=== PATIENT | male | born 1985 | race Caucasian/White ===

== ENCOUNTER → 2018-06-17 | Outpatient (REF) ==
[~2018-06-17] MED LIST: ALBU8.5H2 IH; BENZ100C18 PO; IBP800T PO; ONDA8TAB13 PO; ONDA8TAB9 PO; ONDAN4ODT PO; OSLT75CRX PO; PRD20T PO
--- NOTE | 2018-06-17 11:41 | Diagnostic Imaging Report ---
INDICATION: Left knee pain. TIME OF EXAM: 11:31 AM 3 views left knee were obtained. FINDINGS: Alignment is normal. Joint spaces are well maintained. Articular surfaces are smooth. No fracture, dislocation or effusion is seen. IMPRESSION: No acute bony abnormality is detected. Dictated by: Dictated on workstation # [id number]
== END | disposition home or self-care (01) ==
LOC: OCC 10:56
PROVIDERS: ATTEND Family Medicine
CPT/HCPCS: 73562

== ENCOUNTER → 2018-07-08 | Outpatient (REF) | payer OTHER ==
--- NOTE | 2018-07-08 19:06 | Diagnostic Imaging Report ---
PROCEDURE: MRI left joint lower extremity without contrast. TECHNIQUE: Multiplanar, multisequence non contrast-enhanced MRI of the left lower extremity was accomplished. INDICATION: Left knee pain. FINDINGS: There is some increased signal intensity about the anterior cruciate ligament. There appear to be a few fibers intact, although findings are suspect for a partial tear. The posterior cruciate ligament is intact. Both the superficial and deep components of the medial collateral ligament are intact. The biceps femoris, fibular collateral, and iliotibial band are intact. The popliteus is intact. There appears to be a tear of the posterior horn of the medial meniscus. The anterior horn of the medial meniscus is intact. There also appears to be a nondisplaced tear of the posterior horn of the lateral meniscus. Anterior horn is intact. The quadriceps tendon and patellar tendon are intact. There is a small knee joint effusion. The articular cartilage of the patella is well maintained. There is loss of articular cartilage in the lateral knee joint compartment with some underlying marrow edema in both the lateral femoral condyle and lateral tibial plateau. The articular cartilage in the medial knee joint compartment is well maintained. IMPRESSION: Findings suspect for tears of the posterior horn of both the medial and lateral menisci. Recommend clinical correlation. Loss of articular cartilage in the lateral knee joint compartment with underlying marrow edema in the lateral femoral condyle and lateral tibial plateau. Findings suspect for a partial tear of the anterior cruciate ligament. Complete tear cannot be entirely excluded. Recommend clinical correlation. Small knee joint effusion. Dictated by: Dictated on workstation # [id number]
== END | disposition home or self-care (01) ==
LOC: OCC 15:59
PROVIDERS: ATTEND Family Medicine
CPT/HCPCS: 73721

== ENCOUNTER 2020-08-31 13:19 | Day surgery (SDC) | payer SELFPAY ==
[~2020-08-31] VITALS: Ht 180.3 cm; Wt 109.0 kg
[2020-08-31] VITALS (10 sets, daily range): BP systolic 116–167; BP diastolic 84–97
--- NOTE | 2020-08-31 13:44 | ED Abdominal Pain ---
General Chief Complaint: Abdominal/GI Problems Stated Complaint: L SIDE PAIN, ABD PAIN, NAUSEA Source of Information: Patient Exam Limitations: No Limitations History of Present Illness Date Seen by Provider: Aug 31, 2020 Time Seen by Provider: 13:30 Initial Comments This is a well-appearing 34-year-old male who presents to the ER with complaints of lower abdominal pain and left flank pain since 0400 this morning. States he has a sharp, constant pain, and rates 10/10. Also reports nausea without emesis and some constipation. Denies any flatulence. denies fevers, chills, cough, shortness of breath, difficulty urinating, dysuria, or hematuria. States he has been unable to eat anything today, but did drink Dr. Pepper around 1300 this afternoon. Severity/Quality: Moderate Location: RLQ, LLQ, Flank (left ) Activities at Onset: None Allergies and Home Medications Allergies Coded Allergies: No Known Drug Allergies (Unverified , 10/15/12) Home Medications Albuterol 8.5 Gm Hfa.aer.ad, 2 PUFF IH Q6H 2 PUFFS Prescribed by: BETH GIBSON on 09/30/131921 Benzonatate 100 Mg Capsule, 100 MG PO Q4H PRN for COUGH Prescribed by: BETH GIBSON on 09/30/131921 Ibuprofen 800 Mg Tablet, 1 EACH PO TID PRN Prescribed by: SCAR AGGARWAL on 10/15/12701 Ondansetron 8 Mg Tab.rapdis, 8 MG PO Q6H PRN for NAUSEA/VOMITING Prescribed by: BETH GIBSON on 09/30/131923 Ondansetron Hcl 8 Mg/Tab Tab.rapdis, 4 MG PO Q6 PRN, (Reported) Ondansetron Hcl 4 Mg Tab, 4 MG PO Q4H Prescribed by: SCAR AGGARWAL on 10/15/12701 Oseltamivir Phosphate 75 Mg Cap, 75 MG PO BID Prescribed by: BETH GIBSON on 09/30/131921 Prednisone 20 Mg Tab, 40 MG PO DAILY Prescribed by: BETH GIBSON on 09/30/131921 Patient Home Medication List Home Medication List Reviewed: Yes Review of Systems Review of Systems Constitutional: no symptoms reported EENTM: No Symptoms Reported Respiratory: No Symptoms Reported Cardiovascular: No Symptoms Reported Gastrointestinal: See HPI Genitourinary: No Symptoms Reported Musculoskeletal: no symptoms reported Skin: no symptoms reported Psychiatric/Neurological: No Symptoms Reported Endocrine: No Symptoms Reported Hematologic/Lymphatic: No Symptoms Reported Past Xcdgoho-Uatzcj-Xvwxeb Hx Patient Social History Recent Foreign Travel: No Contact w/Someone Who Travel: No Past Medical History Reproductive Disorders: No Sexually Transmitted Disease: No Family Medical History No Pertinent Family Hx Physical Exam Vital Signs Vital Signs - First Documented 08/31/20 13:25 Temp 36.0 Pulse 73 Resp 18 B/P (MAP) 128/83 (98) Pulse Ox 99 O2 Delivery Room Air Capillary Refill : Height/Weight/BMI Height: 6'0" Weight: 230lbs. oz. 104.895812yi; BMI Method:Stated General Appearance: WD/WN, no apparent distress HEENT: PERRL/EOMI, normal ENT inspection, pharynx normal Neck: non-tender, full range of motion, normal inspection Respiratory: lungs clear, normal breath sounds, no respiratory distress, no accessory muscle use Cardiovascular: regular rate, rhythm, no edema, no murmur Peripheral Pulses: 2+ Radial Pulses (R), 2+ Radial Pulses (L) Gastrointestinal: soft, abnormal bowel sounds (hypoactive), rebound, tenderness (Diffuse lower abdomen) Extremities: normal range of motion, non-tender, normal inspection, no pedal edema Back: normal inspection, no CVA tenderness Neurologic/Psychiatric: no motor/sensory deficits, alert, normal mood/affect, oriented x 3 Skin: normal color, warm/dry Focused Exam Lactate Level 08/31/20 14:50: Lactic Acid Level 1.27 Lactic Acid Level Laboratory Tests Test 08/31/20 14:50 Lactic Acid Level 1.27 MMOL/L (0.50-2.00) Progress/Results/Core Measures Results/Orders Lab Results Laboratory Tests Test 08/31/20 13:26 08/31/20 13:40 08/31/20 14:50 Range/Units White Blood Count 18.6 H 4.3-11.0 10^3/uL Red Blood Count 5.04 4.30-5.52 10^6/uL Hemoglobin 14.8 13.3-17.7 g/dL Hematocrit 45 40-54 % Mean Corpuscular Volume 89 80-99 fL Mean Corpuscular Hemoglobin 29 25-34 pg Mean Corpuscular Hemoglobin Concent 33 32-36 g/dL Red Cell Distribution Width 13.5 10.0-14.5 % Platelet Count 321 130-400 10^3/uL Mean Platelet Volume 9.7 9.0-12.2 fL Immature Granulocyte % (Auto) 1 % Neutrophils (%) (Auto) 86 H 42-75 % Lymphocytes (%) (Auto) 9 L 12-44 % Monocytes (%) (Auto) 4 0-12 % Eosinophils (%) (Auto) 0 0-10 % Basophils (%) (Auto) 0 0-10 % Neutrophils # (Auto) 16.0 H 1.8-7.8 10^3/uL Lymphocytes # (Auto) 1.8 1.0-4.0 10^3/uL Monocytes # (Auto) 0.7 0.0-1.0 10^3/uL Eosinophils # (Auto) 0.0 0.0-0.3 10^3/uL Basophils # (Auto) 0.1 0.0-0.1 10^3/uL Immature Granulocyte # (Auto) 0.1 0.0-0.1 10^3/uL Neutrophils % (Manual) 79 % Lymphocytes % (Manual) 14 % Monocytes % (Manual) 4 % Reactive Lymphocytes 3 % Blood Morphology Comment NORMAL Sodium Level 137 135-145 MMOL/L Potassium Level 4.1 3.6-5.0 MMOL/L Chloride Level 103 98-107 MMOL/L Carbon Dioxide Level 30 21-32 MMOL/L Anion Gap 4 L 5-14 MMOL/L Blood Urea Nitrogen 12 7-18 MG/DL Creatinine 0.86 0.60-1.30 MG/DL Estimat Glomerular Filtration Rate > 60 BUN/Creatinine Ratio 14 Glucose Level 121 H 70-105 MG/DL Calcium Level 9.5 8.5-10.1 MG/DL Corrected Calcium 9.1 8.5-10.1 MG/DL Total Bilirubin 0.7 0.1-1.0 MG/DL Aspartate Amino Transf (AST/SGOT) 19 5-34 U/L Alanine Aminotransferase (ALT/SGPT) 19 0-55 U/L Alkaline Phosphatase 70 40-136 U/L Total Protein 8.0 6.4-8.2 GM/DL Albumin 4.5 3.2-4.5 GM/DL Urine Color YELLOW Urine Clarity CLEAR Urine pH 6.5 5-9 Urine Specific [place] 1.025 H 1.016-1.022 Urine Protein NEGATIVE NEGATIVE Urine Glucose (UA) NEGATIVE NEGATIVE Urine Ketones NEGATIVE NEGATIVE Urine Nitrite NEGATIVE NEGATIVE Urine Bilirubin NEGATIVE NEGATIVE Urine Urobilinogen 0.2 < = 1.0 MG/DL Urine Leukocyte Esterase NEGATIVE NEGATIVE Urine RBC (Auto) NEGATIVE NEGATIVE Urine RBC NONE /HPF Urine WBC NONE /HPF Urine Squamous Epithelial Cells 0-2 /HPF Urine Crystals NONE /LPF Urine Bacteria TRACE /HPF Urine Casts PRESENT /LPF Urine Hyaline Casts RARE /LPF Urine Mucus SMALL H /LPF Urine Culture Indicated NO Lactic Acid Level 1.27 0.50-2.00 MMOL/L My Orders Orders - KARSON BLANCHARD CONTRACT OFFICER Ct Abd/Pelvis Wo(Kidney Stone) (08/31/20 14:00) Abdomen/Kub 1view (08/31/20 14:00) Ed Iv/Invasive Line Start (08/31/20 14:00) Ua Culture If Indicated (08/31/20 14:00) Ketorolac Injection (Toradol Injection) (08/31/20 14:00) Cbc With Automated Diff (08/31/20 14:00) Comprehensive Metabolic Panel (08/31/20 14:00) Manual Differential (08/31/20 13:26) Lactic Acid Analyzer (08/31/20 14:30) Blood Culture (08/31/20 14:30) Blood Culture (08/31/20 14:55) Ns Iv 1000 Ml (Sodium Chloride 0.9%) (08/31/20 15:00) Cefazolin Injection (Ancef Injection) (08/31/20 15:30) Metronidazole 500mg/100ml Ivpb (Flagyl 5 (08/31/20 15:30) Ns Iv 1000 Ml (Sodium Chloride 0.9%) (08/31/20 15:30) Medications Given in ED Current Medications Medications Dose Ordered Sig/Ervin Route Start Time Stop Time Status Last Admin Dose Admin Ketorolac Tromethamine 15 mg ONCE ONCE IV 08/31/20 14:00 08/31/20 14:01 DC 08/31/20 14:08 15 MG Vital Signs/I&O 08/31/20 13:25 Temp 36.0 Pulse 73 Resp 18 B/P (MAP) 128/83 (98) Pulse Ox 99 O2 Delivery Room Air Progress Progress Note : Progress Note Based on his history and exam. Will initiate renal stone workup. Orders placed for 15 mg of Toradol for pain. Pain improved from 10/10 to 2/10. Resting comfortably. Radiographs reviewed, non-contrast CT shows acute appendicitis. Called Dr. Scott, who recommended calling in surgical crew for appendectomy. Orders placed for Ancef 1gm and Flagyl 500mg IV. Vital signs stable. FULL CODE Diagnostic Imaging Diagonstic Imaging: CT Plain Films/CT/US/NM/MRI: abdomen Comments NAME: CHARLOTTE MACK [employer] REC#: [id number] PT STATUS: REG ER : 1985 PHYSICIAN: KARSON BLANCHARD CONTRACT OFFICER ADMIT DATE: 08/31/20/ER Draft Date of Exam:08/31/20 CT ABD/PELVIS WO(KIDNEY STONE) PROCEDURE: CT urinary tract, rule out kidney stone. TECHNIQUE: Multiple contiguous axial images were obtained through the abdomen and pelvis without the use of intravenous contrast. Auto Exposure Controls were utilized during the CT exam to meet ALARA standards for radiation dose reduction. INDICATION: Flank pain. FINDINGS: Unenhanced images of the liver and spleen reveal no focal abnormalities. Gallbladder, pancreas, adrenal glands and kidneys are unremarkable in appearance on the noncontrasted study. There is no evidence of free fluid in the abdomen or pelvis. There is mild aortoiliac atherosclerotic calcification. Several calcifications in left hemipelvis are consistent with phleboliths. No definite urinary tract stone is identified. There appears to be enlargement of the appendix with surrounding edema and inflammation. No abscess is identified. Unenhanced urinary bladder is unremarkable. IMPRESSION: Findings indicate acute appendicitis without evidence of perforation or abscess. No other acute abnormality seen within the abdomen or pelvis. Dictated on workstation # [id number] Dict: 08/31/20 1449 Trans: 08/31/20 1459 [facility] [id number] Interpreted by: UNRULY GAMBOA MD Electronically signed by: Diagonstic Imaging: Xray Plain Films/CT/US/NM/MRI: abdomen Comments NAME: CHARLOTTE MACK [employer] REC#: [id number] PT STATUS: REG ER : 1985 PHYSICIAN: KARSON BLANCHARD CONTRACT OFFICER ADMIT DATE: 08/31/20/ER Draft Date of Exam:08/31/20 ABDOMEN/KUB 1VIEW INDICATION: Flank pain. COMPARISON: None available. TECHNIQUE: Single radiograph of the abdomen dated 08/31/2020. FINDINGS: A couple of calcifications are identified within the left lower pelvis which are round in shape. The more superiorly positioned calcification measures 5 mm and could be near the expected location of the left ureterovesicular junction. No suspicious calcifications overlying the renal shadows. Nonobstructive bowel gas pattern. No free air. No acute osseous abnormality. IMPRESSION: Calcifications overlying the left pelvis which may relate to phleboliths although distal ureteroliths would be an additional consideration, particularly given one of the calcifications is near the expected location of the left ureterovesicular junction. Further evaluation with CT or ultrasound could be obtained as clinically indicated. Dictated on workstation # [id number] Dict: 08/31/20 1436 Trans: 08/31/20 1444 [id number] Interpreted by: VEL JACKSON MD Electronically signed by: Departure Communication (Admissions) Time/Spoke to Admitting Phy: 15:[address] Scott, recommended calling surgical crew for appendectomy. Impression Primary Impression: Acute appendicitis Disposition: ADMITTED INPATIENT Condition: Stable Admissions Decision to Admit Reason: Admit from ER (Trauma) Decision to Admit/Date: Aug 31, 2020 Time/Decision to Admit Time: 15:10 Departure-Patient Inst. Referrals: [facility] (PCP/Family) Primary Care Physician KARSON BLANCHARD APRN Aug 31, 2020 13:44
[2020-08-31] MEDS ORDERED: KETOROLAC 30 MG/ML VIAL IV ONE (14:00)
[2020-08-31 14:06] LABS: BASOPHILS # (AUTO) 0.1 10^3/uL (0.0-0.1); BASOPHILS % (AUTO) 0 % (0-10); EOSINOPHILS % (AUTO) 0 % (0-10); HEMATOCRIT 45 % (40-54); HEMOGLOBIN 14.8 g/dL (13.3-17.7); LYMPHOCYTES # (AUTO) 1.8 10^3/uL (1.0-4.0); LYMPHOCYTES % (AUTO) 9 % (12-44); MEAN CORPUSCULAR HEMOGLOBIN 29 pg (25-34); MEAN CORPUSCULAR HGB CONC 33 g/dL (32-36); MEAN CORPUSCULAR VOLUME 89 fL (80-99); MEAN PLATELET VOLUME 9.7 fL (9.0-12.2); MONOCYTES # (AUTO) 0.7 10^3/uL (0.0-1.0); MONOCYTES % (AUTO) 4 % (0-12); NEUTROPHILS % (AUTO) 86 % (42-75); PLATELET COUNT 321 10^3/uL (130-400); WHITE BLOOD COUNT 18.6 10^3/uL (4.3-11.0)
[2020-08-31 14:13] LABS: BILIRUBIN,URINE NEGATIVE (NEGATIVE); CLARITY,URINE CLEAR; COLOR,URINE YELLOW; GLUCOSE, URINE (UA) NEGATIVE (NEGATIVE); KETONES,URINE NEGATIVE (NEGATIVE); LEUKOCYTE ESTERASE ,URINE NEGATIVE (NEGATIVE); NITRITE,URINE NEGATIVE (NEGATIVE); PH,URINE 6.5 (5-9); PROTEIN,URINE NEGATIVE (NEGATIVE)
[2020-08-31 14:16] LABS: ALANINE AMINOTRANSFERASE 19 U/L (0-55); ALBUMIN 4.5 GM/DL (3.2-4.5); ALKALINE PHOSPHATASE 70 U/L (40-136); BILIRUBIN,TOTAL 0.7 MG/DL (0.1-1.0); BUN/CREATININE RATIO 14; CALCIUM 9.5 MG/DL (8.5-10.1); CARBON DIOXIDE 30 MMOL/L (21-32); CHLORIDE 103 MMOL/L (98-107); CREATININE SERUM 0.86 MG/DL (0.60-1.30); GFR ESTIMATED > 60; GLUCOSE 121 MG/DL (70-105); POTASSIUM 4.1 MMOL/L (3.6-5.0); SODIUM 137 MMOL/L (135-145)
[2020-08-31 14:22] LABS: BACTERIA,URINE TRACE /HPF; HYALINE CASTS, URINE RARE /LPF; SQUAMOUS EPITHELIAL CELL,UR 0-2 /HPF
--- NOTE | 2020-08-31 14:44 | Diagnostic Imaging Report ---
INDICATION: Flank pain. COMPARISON: None available. TECHNIQUE: Single radiograph of the abdomen dated 08/31/2020. FINDINGS: A couple of calcifications are identified within the left lower pelvis which are round in shape. The more superiorly positioned calcification measures 5 mm and could be near the expected location of the left ureterovesicular junction. No suspicious calcifications overlying the renal shadows. Nonobstructive bowel gas pattern. No free air. No acute osseous abnormality. IMPRESSION: Calcifications overlying the left pelvis which may relate to phleboliths although distal ureteroliths would be an additional consideration, particularly given one of the calcifications is near the expected location of the left ureterovesicular junction. Further evaluation with CT or ultrasound could be obtained as clinically indicated. Dictated by: Dictated on workstation # [id number]
[2020-08-31] MEDS ORDERED: NS IV 1000 ML 1,000 ML IV ONE (15:00)
--- NOTE | 2020-08-31 15:00 | Diagnostic Imaging Report ---
PROCEDURE: CT urinary tract, rule out kidney stone. TECHNIQUE: Multiple contiguous axial images were obtained through the abdomen and pelvis without the use of intravenous contrast. Auto Exposure Controls were utilized during the CT exam to meet ALARA standards for radiation dose reduction. INDICATION: Flank pain. FINDINGS: Unenhanced images of the liver and spleen reveal no focal abnormalities. Gallbladder, pancreas, adrenal glands and kidneys are unremarkable in appearance on the noncontrasted study. There is no evidence of free fluid in the abdomen or pelvis. There is mild aortoiliac atherosclerotic calcification. Several calcifications in left hemipelvis are consistent with phleboliths. No definite urinary tract stone is identified. There appears to be enlargement of the appendix with surrounding edema and inflammation. No abscess is identified. Unenhanced urinary bladder is unremarkable. IMPRESSION: Findings indicate acute appendicitis without evidence of perforation or abscess. No other acute abnormality seen within the abdomen or pelvis. Dictated by: Dictated on workstation # [id number]
[2020-08-31 15:12] LABS: LYMPHOCYTES % (MANUAL) 14 %; MONOCYTES % (MANUAL) 4 %; NEUTROPHILS % (MANUAL) 79 %; RBC MORPH NORMAL; REACTIVE LYMPHOCYTES 3 %
[2020-08-31] MEDS ORDERED: fentaNYL INJECTION 100 MCG/2 ML AMP ONE (15:29)
[2020-08-31] MEDS ORDERED: MIDAZOLAM 2 MG/2 ML (VERSED) VIAL ONE (15:30)
[2020-08-31] MEDS ORDERED: NS IV 1000 ML 1,000 ML IV SCH (15:30)
[2020-08-31] MEDS ORDERED: metroNIDAZOLE 500MG/100ML IVPB 100 ML IV ONE (15:30)
[2020-08-31] MEDS ORDERED: ceFAZolin INJECTION 1,000 MG in WATER (STERILE) FOR INJECTION 10 ML IV ONE ×2 (15:30→15:45)
--- NOTE | 2020-08-31 15:38 | NUR ---
DR ROSADO HERE
--- NOTE | 2020-08-31 15:49 | History & Physical-Surgical ---
ERICAJUANCARLOS MED STUDENT 08/31/20 1549: History of Present Illness History of Present Illness Reason for visit/HPI Pt is a 34yo male presenting with acute onset of abd pain. He states that this morning at 4AM, he was woken up by severe pain to his LLQ to lower-mid abd. Denies having experienced pain like this before. Initially the pain was 10/10, but he received Toradol in the ED and the pain is now 0/10. Denies chest pain, SOB, N/V. He has urinated since the pain started and denies dysuria. Date of Admission 08/31/2020 Date Seen by a Provider: Aug 31, 2020 Time Seen by a Provider: 03:35 I consulted on this patient on 08/31/20 15:44 Attending Physician Kari Rosado DO Admitting Physician [facility] Consult Allergies and Home Medications Allergies Coded Allergies: No Known Drug Allergies (Unverified , 10/15/12) Home Medications Albuterol 8.5 Gm Hfa.aer.ad, 2 PUFF IH Q6H 2 PUFFS Prescribed by: BETH GIBSON on 09/30/131921 Benzonatate 100 Mg Capsule, 100 MG PO Q4H PRN for COUGH Prescribed by: BETH GIBSON on 09/30/131921 Ibuprofen 800 Mg Tablet, 1 EACH PO TID PRN Prescribed by: SCAR AGGARWAL on 10/15/12701 Ondansetron 8 Mg Tab.rapdis, 8 MG PO Q6H PRN for NAUSEA/VOMITING Prescribed by: BETH GIBSON on 09/30/131923 Ondansetron Hcl 8 Mg/Tab Tab.rapdis, 4 MG PO Q6 PRN, (Reported) Ondansetron Hcl 4 Mg Tab, 4 MG PO Q4H Prescribed by: SCAR AGGARWAL on 10/15/12701 Oseltamivir Phosphate 75 Mg Cap, 75 MG PO BID Prescribed by: BETH GIBSON on 09/30/131921 Prednisone 20 Mg Tab, 40 MG PO DAILY Prescribed by: BETH GIBSON on 09/30/131921 Patient Home Medication List Home Medication List Reviewed: Yes Past Wqxkwnp-Ssrpxo-Hrzcyz Hx Patient Social History Alcohol Use: Occasionally Uses Recreational Drug Use: No Smoking Status: Current Everyday Smoker Recent Foreign Travel: No Contact w/Someone Who Travel: No Recent Infectious Disease Expo: No Surgeries History of Surgeries: Yes Surgeries: Tonsillectomy Respiratory History of Respiratory Disorde: No Cardiovascular History of Cardiac Disorders: No Neurological History of Neurological Disord: No Reproductive System Hx Reproductive Disorders: No Sexually Transmitted Disease: No Genitourinary History of Genitourinary Disor: No Gastrointestinal History of Gastrointestinal Di: No Musculoskeletal History of Musculoskeletal Dis: No Endocrine History of Endocrine Disorders: No HEENT History of HEENT Disorders: No Cancer History of Cancer: No Psychosocial History of Psychiatric Problem: No Integumentary History of Skin or Integumenta: No Blood Transfusions History of Blood Disorders: No Reviewed Nursing Assessment Reviewed/Agree w Nursing PMH: Yes Family Medical History Significant Family History: No Pertinent Family Hx Review of Systems Constitutional: No chills, No fever EENTM: No hearing loss, No vision loss Respiratory: No cough, No short of breath Cardiovascular: No chest pain, No palpitations Gastrointestinal: LLQ, abdominal pain; No dysphagia, No nausea, No vomiting Genitourinary: No dysuria, No hematuria Musculoskeletal: No muscle pain, No muscle stiffness, No muscle cramps Skin: No lesions, No rash Psychiatric/Neurological: Denies Headache, Denies Numbness, Denies Tingling Physical Exam Vital Signs Vital Signs - First Documented 08/31/20 13:25 Temp 36.0 Pulse 73 Resp 18 B/P (MAP) 128/83 (98) Pulse Ox 99 O2 Delivery Room Air Capillary Refill : Less Than 3 Seconds Height, Weight, BMI Height: 6'0" Weight: 230lbs. oz. [id number]; 33.00 BMI Method:Stated General Appearance: No Apparent Distress, WD/WN HEENT: PERRL/EOMI, Normal ENT Inspection, Moist Mucous Membranes Neck: Full Range of Motion, Normal Inspection, Non Tender, Supple Respiratory: Chest Non Tender, No Accessory Muscle Use, No Respiratory Distress Cardiovascular: No Edema, No JVD, Normal Peripheral Pulses Gastrointestinal: Soft; No Distended, No Guarding, No Rebound; Tenderness Rectal: Deferred Back: Normal Inspection Extremity: Normal Inspection, Normal Range of Motion, Non Tender, No Pedal Edema Neurologic/Psychiatric: Alert, Oriented x3, No Motor/Sensory Deficits, Normal Mood/Affect Skin: Normal Color, Warm/Dry Lymphatic: No Adenopathy Data Review Labs Laboratory Tests 08/31/20 13:26: White Blood Count 18.6H, Red Blood Count 5.04, Hemoglobin 14.8, Hematocrit 45, Mean Corpuscular Volume 89, Mean Corpuscular Hemoglobin 29, Mean Corpuscular Hemoglobin Concent 33, Red Cell Distribution Width 13.5, Platelet Count 321, M yoel Platelet Volume 9.7, Immature Granulocyte % (Auto) 1, Neutrophils (%) (Auto) 86H, Lymphocytes (%) (Auto) 9L, Monocytes (%) (Auto) 4, Eosinophils (%) (Auto) 0, Basophils (%) (Auto) 0, Neutrophils # (Auto) 16.0H, Lymphocytes # (Auto) 1.8, Monocytes # (Auto) 0.7, Eosinophils # (Auto) 0.0, Basophils # (Auto) 0.1, Immatu re Granulocyte # (Auto) 0.1, Neutrophils % (Manual) 79, Lymphocytes % (Manual) 14, Monocytes % (Manual) 4, Reactive Lymphocytes 3, Blood Morphology Comment NORMAL, Sodium Level 137, Potassium Level 4.1, Chloride Level 103, Carbon Dioxide Level 30, Anion Gap 4L, Blood Urea Nitrogen 12, Creatinine 0.86, Estimat Glomerular Filtration Rate > 60, BUN/Creatinine Ratio 14, Glucose Level 121H, Calcium Level 9.5, Corrected Calcium 9.1, Total Bilirubin 0.7, Aspartate Amino Transf (AST/SGOT) 19, Alanine Aminotransferase (ALT/SGPT) 19, Alkaline Phosphatase 70, Total Protein 8.0, Albumin 4.5 08/31/20 13:40: Urine Color YELLOW, Urine Clarity CLEAR, Urine pH 6.5, Urine Specific [place] 1.025H, Urine Protein NEGATIVE, Urine Glucose (UA) NEGATIVE, Urine Ketones NEGATIVE, Urine Nitrite NEGATIVE, Urine Bilirubin NEGATIVE, Urine Urobilinogen 0.2, Urine Leukocyte Esterase NEGATIVE, Urine RBC (Auto) NEGATIVE, Urine RBC NONE, Urine WBC NONE, Urine Squamous Epithelial Cells 0-2, Urine Crystals NONE, Urine Bacteria TRACE, Urine Casts PRESENT, Urine Hyaline Casts RARE, Urine Mucus SMALLH, Urine Culture Indicated NO 08/31/20 14:50: Lactic Acid Level 1.27 Assessment/Plan Assessment/Plan Admission Diagonsis Acute appendicitis Assessment/Plan Acute appendicitis Leukocytosis - WBC 18.6 CT abd/pelvis showed enlargement/inflammation indicative of appendicitis NPO, IV Ancef, pain management, prep for OR today KARI ROSADO 08/31/20 1619: History of Present Illness History of Present Illness Reason for visit/HPI Seen and evaluated in ED. CC: lower abdominal pain. 34 year old male with lower abdominal pain that started about 4 am. Continued through day. Sharp pain. No radiation of pain. 06/12. Had nausea no emesis. Pain medication has made better. Movement makes worse. Had ct scan showing findings consistent with appendicitis. WBC 18.6. Denies fever sweats chills shortness of breath or chest pain. Date of Admission T Allergies and Home Medications Allergies Coded Allergies: No Known Drug Allergies (Unverified , 10/15/12) Home Medications Albuterol 8.5 Gm Hfa.aer.ad, 2 PUFF IH Q6H 2 PUFFS Prescribed by: BETH GIBSON on 09/30/131921 Benzonatate 100 Mg Capsule, 100 MG PO Q4H PRN for COUGH Prescribed by: BETH GIBSON on 09/30/131921 Ibuprofen 800 Mg Tablet, 1 EACH PO TID PRN Prescribed by: SCAR AGGARWAL on 10/15/12 07 Ondansetron 8 Mg Tab.rapdis, 8 MG PO Q6H PRN for NAUSEA/VOMITING Prescribed by: BETH GIBSON on 09/30/131923 Ondansetron Hcl 8 Mg/Tab Tab.rapdis, 4 MG PO Q6 PRN, (Reported) Ondansetron Hcl 4 Mg Tab, 4 MG PO Q4H Prescribed by: SCAR AGGARWAL on 10/15/12 07 Oseltamivir Phosphate 75 Mg Cap, 75 MG PO BID Prescribed by: BETH GIBSON on 09/30/131921 Prednisone 20 Mg Tab, 40 MG PO DAILY Prescribed by: BETH GIBSON on 09/30/131921 Patient Home Medication List Home Medication List Reviewed: Yes Past Xcdrnfm-Aixbbk-Omenxq Hx Reviewed Nursing Assessment Reviewed/Agree w Nursing PMH: Yes Family Medical History Significant Family History: No Pertinent Family Hx Review of Systems Constitutional: No chills, No fever EENTM: No hearing loss, No vision loss Respiratory: No cough, No short of breath Cardiovascular: No chest pain, No palpitations Gastrointestinal: RLQ, LLQ, abdominal pain; No dysphagia; nausea; No vomiting Genitourinary: No dysuria, No hematuria Musculoskeletal: No muscle pain, No muscle stiffness, No muscle cramps Skin: No lesions, No rash Psychiatric/Neurological: Denies Headache, Denies Numbness, Denies Tingling All Other Systems Reviewed Negative Unless Noted: Yes (Negative excepted noted.) Physical Exam General Appearance: No Apparent Distress, WD/WN HEENT: PERRL/EOMI, Normal ENT Inspection Neck: Full Range of Motion, Normal Inspection, Non Tender, Supple Respiratory: Chest Non Tender, No Accessory Muscle Use, No Respiratory Distress Cardiovascular: Regular Rate, Rhythm, No JVD, Normal Peripheral Pulses Gastrointestinal: Soft; No Distended, No Guarding, No Rebound; Tenderness (suprapubic pain) Rectal: Deferred Back: Normal Inspection, No CVA Tenderness Extremity: Normal Inspection, Normal Range of Motion, Non Tender Neurologic/Psychiatric: Alert, Oriented x3, No Motor/Sensory Deficits, Normal Mood/Affect Skin: Normal Color, Warm/Dry Lymphatic: No Adenopathy Assessment/Plan Assessment/Plan Admission Diagonsis suprapubic abdominal pain acute appendicitis Admission Status: Other (Same Day Surgery) Assessment/Plan suprapubic abdominal pain acute appendicitis leukocytosis patient discussed ct and physical exam findings patient explained risks and benefits of laparoscopic appendectomy all other indicated procedures understands and wishes to proceed. NPO Ancef/flagyl preop Iv fluids to OR Supervisory-Addendum Brief Verification & Attestation Participated in pt care: history, MDM, physical Personally performed: exam, history, MDM, supervision of care Care discussed with: Medical Student Procedures: n/a Results interpretation: Verified all documentation Verification and Attestation of Medical Student E/M Service A medical student performed and documented this service in my presence. I reviewed and verified all information documented by the medical student and made modifications to such information, when appropriate. I personally performed the physical exam and medical decision making. Kari Rosado, Aug 31, 2020,16:21 JUANCARLOS MALDONADO MED STUDENT Aug 31, 2020 15:49 KARI ROSADO DO Aug 31, 2020 16:19
--- NOTE | 2020-08-31 15:52 | NUR ---
FLAGYL AND ANCEF WILL BE SENT WITH SURG TO GIVE PER DR ROSADO
--- NOTE | 2020-08-31 15:55 | NUR ---
PATIENT BELONGINGSPLACED IN PATIENT BAG CELL PHONE AND WALLENT PLACED IN SHOE AND PUT IN BELONGING BAG.
--- NOTE | 2020-08-31 16:03 | NUR ---
MOTHER CALLEAD UPDATE GIVEN.
[2020-08-31] MEDS ORDERED: LIDOCAINE/EPI 1%-1:100,000 (XYLOCAINE) 50 ML ONE (16:15)
--- NOTE | 2020-08-31 16:27 | NUR ---
TO OR PER CART ANCEF AND FLAGYL SENT WITH OR STAFF.
[2020-08-31] MEDS: LACTATED RINGERS 1,000 ML IV SCH ×3 (16:30→18:06)
[2020-08-31] MEDS ORDERED: ceFAZolin 2 GM IV Premixed 50 ML ONE (16:44)
[2020-08-31] MEDS ORDERED: LIDOCAINE PF 2% 5 ML (XYLOCAINE) VIAL ONE (16:48)
[2020-08-31] MEDS ORDERED: ROCURONIUM 10 MG/ML 5 ML SYRINGE IV ONE (16:48)
[2020-08-31] MEDS ORDERED: proPOfol 200 MG/20 ML (DIPRIVAN) VIAL IV ONE (16:48)
[2020-08-31] MEDS ORDERED: SEVOFLURANE (ULTANE) 15 ML INHAL SOLN ONE ×5 (16:48→17:39)
[2020-08-31] MEDS ORDERED: SUCCINYLCHOLINE INJ 100 MG/5 ML SYR/VIAL ONE (16:48)
[2020-08-31] MEDS ORDERED: morphine INJ 10 MG/ML 1ML (SYR OR VIAL) ONE (17:10)
--- NOTE | 2020-08-31 17:29 | Progress Note-Post Operative ---
Post-Operative Progess Note Surgeon (s)/Oil Well Engineer (s) Surgeon KARI ROSADO DO Oil Well Engineer: na Pre-Operative Diagnosis suprapubic abdominal pain, acute appendicitis Post-Operative Diagnosis same Procedure & Operative Findings Date of Procedure 08/31/20 Procedure Performed/Findings PROCEDURE: Laparoscopic appendectomy. COMPLICATIONS: None. INDICATIONS: The patient is a 34 year old male who has been having lower abdominal pain. Patient's ct and exam consistent with appendicitis. I discussed risk and benefits of laparoscopic appendectomy and all indicated procedures with the possibility being a normal appendix. The patient understands the risks and benefits and wishes to proceed. Consent was signed on the chart. DESCRIPTION OF PROCEDURE: The patient was taken to the operating suite, prepped and draped in a sterile fashion. Timeout was performed. Local anesthetic was infiltrated just above the umbilicus and 11-blade scalpel was used to make a skin incision. Cautery was used to dissect down to the fascia and scored. Kochers were used to grasp and elevate it and the abdomen was then entered. A 0 Vicryl was placed in a [id number] fashion for closure at the end of the case. The balloon trocar was inserted into the abdomen and pneumoperitoneum was achieved. Under direct visualization of the laparoscope, a 5 mm trocar was placed in the suprapubic region and a 5 mm trocar was placed in the left lower quadrant. Appendix was located, Inflammed dilated appendix. The mesoappendix was then divided using ligasure. Once at the base an Endo-PRISCILLA 2.5 stapler was then fired across the base of the appendix. It was then placed in an Endobag and removed through the 12 mm trocar site. No other pathology noted. The abdomen was then desufflated and the trocars were removed. The 0 Vicryl placed at the beginning of the case was then tied closing the 12 mm fascial defect. The skin was then closed using 4-0 Monocryl in a subcuticular fashion. The abdomen was then washed and dried and Skin Affix was placed over the incisions. The patient tolerated the procedure well without any complications and was taken to the recovery room in stable condition. Anesthesia Type general Estimated Blood Loss Estimated blood loss (mL): minimal Specimens/Packing Specimens Removed appendix KARI ROSADO DO Aug 31, 2020 17:29
[2020-08-31] MEDS ORDERED: DOCU-143 PO (17:30)
[2020-08-31] MEDS ORDERED: HYDR-4226 PO (17:30)
--- NOTE | 2020-08-31 17:30 | Discharge Inst-Simple/Standard ---
Discharge Inst-Standard Discharge Medications New, Converted or Re-Newed RX: RX on Chart Patient Instructions/Follow Up Plan of Care/Instructions/FU: 2 weeks Tyler Activity as Tolerated: No Discharge Diet: Regular Diet Other Inst to Patient Follow up Appt: Make appointment for 2 week. Instructions: No lifting greater than 10 pounds. No strenuous activity. May shower in 24 hours, no tub bath or soaking. Use incentive spirometer at home as directed. No Smoking Skin/Wound Care: You have special glue over your incision that will fall off on it's own. Symptoms to Report: Appetite Changes, Extremity Discoloration, Numbness/Tingling, Swelling Increased, Bleeding Excessive, Eyesight Changes, Pain Increased, Urine Color Change, Constipation(Persistent), Fever over 101 degree F, Pain/Pressure in chest, Urinating Difficulty, Cough Up/Vomit Blood, Heart Beat Irreg/Pounding, Pain/Pressure in jaw, Vaginal Bleeding Increase, Cramps in feet or legs, Lightheadedness, Pain/Pressure in shoulder, Diarrhea(Persistent), Memory Changes Suddenly, Questions/Concerns, Weight gain consecutive days, Dizziness/Fainting, Nausea/Vomiting, Shortness of Breath, Weight gain over 2 pounds If questions or concerns contact your physician Or seek help at emergency department. KARI ROSADO DO Aug 31, 2020 17:30
[2020-08-31] MEDS ORDERED: fentaNYL INJECTION 100 MCG/2 ML AMP IVP ONE (17:45)
[2020-08-31] MEDS ORDERED: morphine INJ 10 MG/ML 1ML (SYR OR VIAL) IVP ONE (17:45)
[2020-08-31] MEDS ORDERED: LACTATED RINGERS 1,000 ML IV PRN (17:45)
[2020-08-31] MEDS ORDERED: MEPERIDINE (DEMEROL) INJ 50 MG/ML IVP ONE (17:45)
[2020-08-31] MEDS: ONDANSETRON 4 MG/2 ML (SDV) Z0FRAN IVP PRN ×2 (18:06→18:17)
--- NOTE | 2020-08-31 18:30 | NUR ---
TO AMB SURG FROM [facility] PER CART. ALERT, DENIES ABDOMINAL/SURGICAL SITE PAIN, BUT C/O NAUSEA. ZOFRAN 4 MG GIVEN IVP AT 1806 AND 1817 PER REPORT FROM [facility] RNAlicia. SKIN AFFIX INTACT TO X3 LAP ABD SURGICAL SITES WITH ICE PACK ON.
--- NOTE | 2020-08-31 18:55 | NUR ---
C/O CONTINUED NAUSEA. IS OCCASIONALLY COUGHING UP CLEAR, THICK PHLEGM, BUT NO ACTUAL EMESIS. HAS VOIDED 75 CC CLEAR, CHAPO COLORED URINE.
[2020-08-31] MEDS ORDERED: PROMETHAZINE INJ 25 MG/ML (PHENERGAN) AMP ONE (18:58)
[2020-08-31] MEDS ORDERED: PROMETHAZINE INJ 25 MG/ML (PHENERGAN) AMP IVP ONE (19:00)
--- NOTE | 2020-08-31 19:05 | NUR ---
CONTACTED PT'S TO COME C4 PLANNER PT. STATES SHE WAS UNAWARE HER WOULD BE COMING HOME TONIGHT, BUT THAT SHE WOULD PICK HIM UP MAGALY.
--- NOTE | 2020-08-31 19:07 | NUR ---
CONTACTED DR ROSADO REGARDING PT'S POST OP NAUSEA. ORDER RECEIVED AND PHENERGAN 12.5 MG GIVEN IV PUSH. ALSO C/O DISCOMFORT IN UPPER SHOULDERS. WARM BLANKET TO UPPER SHOULDERS/UPPER BACK.
--- NOTE | 2020-08-31 19:20 | NUR ---
RESTING QUIETLY IN BED WITH EYES CLOSED. AWAKENS TO VOICE, REPORTS NAUSEA IS "BETTER", AND SHOULDER/UPPER BACK PAIN HAS LESSENED.
--- NOTE | 2020-08-31 19:50 | NUR ---
PT'S STILL NOT HERE FOR DISMISSAL, AND AT THIS TIME ALL AREA PHARMACIES WILL BE CLOSING AT 1999, LEAVING PT UNABLE TO GET PAIN MED SCRIPT FILLED. CONTACTED DR ROSADO. CONDITION REPORT GIVEN, AND DISCUSSED PT'S INABILITY TO GET PAIN MED SCRIPT FILLED. DR ROSADO STATES HE WILL ARRANGE FOR LIMITED NUMBER OF PAIN MED TO BE DISPENSED FROM [facility] TO COVER PT'S PAIN CONTROL NEEDS UNTIL PHARMACIES OPEN TOMORROW AM.
[2020-08-31] MEDS ORDERED: RX-HYDROCODONE/APAP 5/325 MG #4 TAB PK PO PRN (20:00)
--- NOTE | 2020-08-31 20:10 | NUR ---
PT'S HAS ARRIVED FOR DISMISSAL. HAVE INSTRUCTED PT ON INCENTIVE SPIROMETRY. HYDROCODONE/APAP 5/325, #4, PROVIDED BY [facility] AND GIVEN TO PT FOR HOME USE. PT STATES NAUSEA IS GONE, ABDOMINAL PAIN 0-1. NO CHANGE IN SITE ASSESSMENT. STATES UPPER SHOULDER DISCOMFORT HAS EASED. MOVES EASILY FROM BED TO WC. STATES HE IS READY FOR DISMISSAL.
--- NOTE | 2020-09-09 07:04 | Anesthesia-General Post-Op ---
General Significant Intra-Op Events Notes postop addendum for 08/31/17 at 1800. Patient Condition Mental Status/LOC: Same as Preop Cardiovascular: Satisfactory Nausea/Vomiting: Absent Respiratory: Satisfactory Pain: Controlled Complications: Absent Post Op Complications Complications None Follow Up Care/Instructions Patient Instructions None needed. Anesthesia/Patient Condition Patient Condition Patient is doing well, no complaints, stable vital signs, no apparent adverse anesthesia problems. No complications reported per nursing. NAIF CASTAÑEDA CRNA Sep 09, 2020 07:04
== END 2020-08-31 20:25 | disposition home or self-care (01) ==
LOC: EDUNIT# 13:19 → ER 13:22 → SDC 15:30
PROVIDERS: ATTEND Surgery
DX: K35.80 Unspecified acute appendicitis (principal); F17.200 Nicotine dependence, unspecified, uncomplicated; Z79.52 Long term (current) use of systemic steroids; Z20.828 Contact with and (suspected) exposure to other viral communicable diseases
CPT/HCPCS: 44970; 74018; 74176; 80053; 81000; 83605; 85007; 85027; 87040; 88304; 96361; 96374; 99285; U0002; 36415; 87635